=== PATIENT | female | born 1975 | race Hispanic/Latino ===

== ENCOUNTER → 2023-01-03 | Outpatient (CLI) | payer OTHER | END | disposition home or self-care (01) | LOC: RAH 12:28 | PROVIDERS: ATTEND Obstetrics & Gynecology | DX: N60.01 Solitary cyst of right breast (principal); N63.11 Unspecified lump in the right breast, upper outer quadrant | CPT/HCPCS: 76641; 77065 ==

== ENCOUNTER 2024-05-17 09:58 | Emergency (ER) | payer BC, OTHER ==
[~2024-05-17] VITALS: Ht 170.2 cm; Wt 99.8 kg
[2024-05-17] MEDS ORDERED: METH4TAB3 PO (10:52)
[2024-05-17] MEDS ORDERED: ACET-2079 PO (10:52)
[2024-05-17] MEDS: ACETAMINOPHEN 500 MG TABLET PO ONE (10:59)
[2024-05-17] MEDS: DEXAMETHASONE SOD PHOSPHATE 4 MG/ML 1ML VIAL IM ONE (11:00)
[2024-05-17 11:36] VITALS: BP 113/66; PULSE 59; RESP 18; O2SAT 100
== END 2024-05-17 11:37 | disposition home or self-care (01) ==
LOC: EDH 09:58
DX: M71.21 Synovial cyst of popliteal space [Baker], right knee (principal); M25.561 Pain in right knee; Z90.49 Acquired absence of other specified parts of digestive tract; Z90.710 Acquired absence of both cervix and uterus; Z98.890 Other specified postprocedural states
CPT/HCPCS: 99284; 73562; 96372; J1100